=== PATIENT | male | born 1965 | race Caucasian/White ===

== ENCOUNTER 2017-02-16 03:33 | Emergency (ER) | payer MEDICARE, MEDICAID | END 2017-02-16 09:24 | disposition home or self-care (01) | LOC: D.ER 03:33 | DX: S87.01XA Crushing injury of right knee, initial encounter (principal); V09.20XA Pedestrian injured in traffic accident involving unspecified motor vehicles, initial encounter; Y93.89 Activity, other specified; Y92.410 Unspecified street and highway as the place of occurrence of the external cause; I10 Essential (primary) hypertension ==

== ENCOUNTER 2018-06-11 16:04 | Emergency (ER) | payer MEDICARE, MEDICAID ==
[~2018-06-11] VITALS: Ht 177.8 cm; Wt 79.1 kg
[2018-06-11 16:26] VITALS: BP 136/84; Ht 177.8 cm; Wt 79.1 kg
[2018-06-11] MEDS ORDERED: PRINIVIL10 MG PO (16:28)
== END 2018-06-11 18:59 | disposition left against medical advice (07) ==
LOC: D.ER 16:04
DX: R51 Headache (principal); V43.52XA Car driver injured in collision with other type car in traffic accident, initial encounter; Y93.89 Activity, other specified; Y92.410 Unspecified street and highway as the place of occurrence of the external cause; I10 Essential (primary) hypertension; F17.200 Nicotine dependence, unspecified, uncomplicated

== ENCOUNTER 2019-01-02 16:56 | Emergency (ER) | payer MEDICARE, MEDICAID ==
[~2019-01-02] VITALS: Ht 177.8 cm; Wt 74.5 kg
[~2019-01-02 16:56] MED LIST: PRINIVIL10 MG PO
[2019-01-02 17:01] VITALS: Ht 177.8 cm; Wt 74.5 kg
[2019-01-02] MEDS ORDERED: CARDIZEM CD240 MG PO (17:40)
[2019-01-02 18:00] VITALS: BP 142/98
== END 2019-01-02 18:15 | disposition home or self-care (01) ==
LOC: D.ER 16:56
DX: H53.9 Unspecified visual disturbance (principal); I10 Essential (primary) hypertension